=== PATIENT | male | born 1980 | race American Indian/Alaskan Native ===

== ENCOUNTER 2023-10-01 19:10 | Emergency (ER) | payer MEDICAID, OTHER ==
--- NOTE | 2023-10-01 19:41 | ED Physician Documentation ---
History of Present Illness - Stated complaint Stated Complaint: ILL,DETOX - Chief complaint Chief Complaint: General - History obtained from History obtained from: Patient - Additonal information Additional information: He was getting methadone treatment in [place], 50 mg a day. Last Monday he missed and because of that went without for 3 days. Because of that he relapsed into inhalational fentanyl use. Last use was yesterday and today he feels anxious, shaky, nauseous and panicky. He does have Narcan at home. PD PAST MEDICAL HISTORY - Past Medical History Past Medical History: No - Past Surgical History Past Surgical History: No - Allergies Allergies/Adverse Reactions: Allergies Allergy/AdvReac Type Severity Reaction Status Date / Time No Known Drug Allergies Allergy Verified 10/01/23 19:25 - Social History Does the pt smoke?: Yes Smoking Status: Current every day smoker Does the pt have substance abuse?: Yes Substance Use and Type: Other PD ED PE NORMAL - Vitals Vital signs reviewed: Yes - General General: Alert and oriented X 3, Other (Slightly anxious but calm and cooperative) - Cardiac Cardiac: Other (Mild resting tachycardia without murmur) - Respiratory Respiratory: No respiratory distress, Clear bilaterally - Abdomen Abdomen: Non tender - Neuro Neuro: Alert and oriented X 3, Normal speech Results - Vitals Vitals: Vital Signs - 24 hr 10/01/23 19:23 Temperature 37.1 C Heart Rate 117 H Respiratory 18 Rate Blood Pressure 142/95 H O2 Saturation 100 Oxygen O2 Source Room air PD Medical Decision Making - ED course ED course: He h discussed with him and his mom that the safest thing to do is to get him back onto his methadone tonight with outpatient follow-up tomorrow. Discussed with him that I would prefer he return here if he is unable to get to his treatment facility, as it is preferable over relapsing onto fentanyl which is much more dangerous. He has Narcan at home. Will do his best to get to his treatment facility tomorrow. That said it is the holiday so it may be questionable. Departure - Departure Disposition: 01 Home, Self Care Clinical Impression: Narcotic abuse Condition: Good Record reviewed to determine appropriate education?: Yes Instructions: ED Withdrawal Narcotic Comments: Try to get up to the place in [place] as per usual tomorrow, you did receive a dose of 50 mg of methadone here. Stay away from fentanyl at all cost.
[2023-10-01] MEDS: METHADONE 5 MG TABLET PO STA (20:03)
[2023-10-01 20:15] VITALS: BP 133/72; O2SAT 98
== END 2023-10-01 20:10 | disposition home or self-care (01) ==
LOC: ED 19:10 → MERGE 19:10 → ED 20:10
DX: F11.10 Opioid abuse, uncomplicated (principal); T40.3X6A Underdosing of methadone, initial encounter; R11.0 Nausea; R25.1 Tremor, unspecified; F17.200 Nicotine dependence, unspecified, uncomplicated; Z91.148 Patient's other noncompliance with medication regimen for other reason
CPT/HCPCS: 99283; 99284; A9270

== ENCOUNTER 2023-10-19 14:59 | Emergency (ER) | payer MEDICAID ==
[2023-10-19 15:14] VITALS: BP 151/97; O2SAT 98
--- NOTE | 2023-10-19 17:00 | ED Physician Documentation ---
History of Present Illness - Stated complaint Stated Complaint: METHADONE - Chief complaint Chief Complaint: General PD PAST MEDICAL HISTORY - Past Medical History Past Medical History: No Cardiovascular: None Respiratory: None Neuro: None Endocrine/Autoimmune: None GI: None : None HEENT: None Psych: Anxiety Musculoskeletal: None Derm: None - Past Surgical History Past Surgical History: No - Present Medications Home Medications: Ambulatory Orders Medication Instructions Recorded Confirmed Methadone [Methadone Hcl] See Rx Instructions .ROUTE .COMPLEX 10/01/23 10/19/23 - Allergies Allergies/Adverse Reactions: Allergies Allergy/AdvReac Type Severity Reaction Status Date / Time No Known Drug Allergies Allergy Verified 10/19/23 15:06 - Social History Does the pt smoke?: Yes Smoking Status: Current every day smoker Does the pt drink ETOH?: No Does the pt have substance abuse?: Yes - Immunizations Immunizations are current?: Yes Results - Vitals Vitals: Vital Signs - 24 hr 10/19/23 15:01 Temperature 36.5 C Heart Rate 151 H Respiratory 15 Rate Blood Pressure 151/97 H O2 Saturation 98 Oxygen O2 Source Room air Departure - Departure
[2023-10-19] MEDS: METHADONE 50 MG/5 ML ORAL SYRINGE PO STA (17:40)
--- NOTE | 2023-10-25 17:06 | ED Physician Documentation ---
History of Present Illness - Stated complaint Stated Complaint: METHADONE - Chief complaint Chief Complaint: General - History obtained from History obtained from: Patient PD PAST MEDICAL HISTORY - Past Medical History Past Medical History: No Cardiovascular: None Respiratory: None Neuro: None Endocrine/Autoimmune: None GI: None : None HEENT: None Psych: Anxiety Musculoskeletal: None Derm: None - Past Surgical History Past Surgical History: No - Present Medications Home Medications: Ambulatory Orders Medication Instructions Recorded Confirmed Methadone [Methadone Hcl] See Rx Instructions .ROUTE .COMPLEX 10/01/23 10/19/23 - Allergies Allergies/Adverse Reactions: Allergies Allergy/AdvReac Type Severity Reaction Status Date / Time No Known Drug Allergies Allergy Verified 10/22/23 12:07 - Social History Does the pt smoke?: Yes Smoking Status: Current every day smoker Does the pt drink ETOH?: No Does the pt have substance abuse?: Yes - Immunizations Immunizations are current?: Yes Results - Vitals Vitals: Oxygen O2 Source Room air PD Medical Decision Making - ED course Complexity details: considered differential (The patient gets methadone daily from a methadone clinic in [place]. He states there was an issue getting there today and he was unable to make it. Here instead. Denies any other problems. Review of old charts does not show this to be a regular issue and it seems reasonable to give him a dose ), d/w patient Departure - Departure Disposition: 01 Home, Self Care Clinical Impression: Methadone dependence, Medication dose missed Condition: Stable Comments: Continue with usual medications. Follow-up with the clinic as usual tomorrow. Return if needed. Forms: PCP List Discharge Date/Time: 10/19/23 17:44
== END 2023-10-19 17:44 | disposition home or self-care (01) ==
LOC: ED 14:59
DX: F15.20 Other stimulant dependence, uncomplicated (principal); Z76.0 Encounter for issue of repeat prescription
CPT/HCPCS: 99282; 99283

== ENCOUNTER 2023-10-22 11:53 | Emergency (ER) | payer MEDICAID ==
[2023-10-22 12:08] VITALS: BP 135/91; O2SAT 100
--- NOTE | 2023-10-22 13:05 | ED Physician Documentation ---
History of Present Illness - Stated complaint Stated Complaint: MED REQUEST - Chief complaint Chief Complaint: General - History obtained from History obtained from: Patient - Additonal information Additional information: The patient returns to the emergency department for chief complaint of wanting another methadone dose. He has been seen here a number of times in the last few weeks because he has missed the bus to go to [place] to get his doses of methadone, and has been coming here instead. The patient was first seen here on at which time he stated that the bus schedule changed because of the holiday and that was why he missed. He came 2 days in a row for his methadone at that time. He was then seen here on the which was 3 days ago because he "just forgot" to catch the bus and go to [place] for his dose. He got a methadone dose the next day but then yesterday, he forgot again and did not take the bus to [place] to get his Monday doses. He is now here asking for a dose of his methadone. His drug of choice is fentanyl, but states he does not use while he is on the methadone. No other complaints at this time. He is not currently in withdrawal. PD PAST MEDICAL HISTORY - Past Medical History Cardiovascular: None Respiratory: None Neuro: None Endocrine/Autoimmune: None GI: None : None HEENT: None Psych: Anxiety Musculoskeletal: None Derm: None - Past Surgical History Past Surgical History: No - Present Medications Home Medications: Ambulatory Orders Medication Instructions Recorded Confirmed Methadone [Methadone Hcl] See Rx Instructions .ROUTE .COMPLEX 10/01/23 10/19/23 - Allergies Allergies/Adverse Reactions: Allergies Allergy/AdvReac Type Severity Reaction Status Date / Time No Known Drug Allergies Allergy Verified 10/22/23 12:07 - Social History Does the pt smoke?: Yes Smoking Status: Current every day smoker Does the pt drink ETOH?: No Does the pt have substance abuse?: Yes Substance Use and Type: Other - Immunizations Immunizations are current?: Yes - POLST Patient has POLST: No PD ED PE NORMAL - Vitals Vital signs reviewed: Yes - General General: Alert and oriented X 3, No acute distress, Well developed/nourished, Other (Disheveled.) - HEENT HEENT: Atraumatic, PERRL, EOMI, Moist mucous membranes - Neck Neck: Supple, no meningeal sign - Respiratory Respiratory: No respiratory distress - Derm Derm: Normal color, Warm and dry, No rash - Extremities Extremities: No deformity - Neuro Neuro: Other (Alert, articulate, grossly intact.) - Psych Psych: Normal mood, Normal affect Results - Vitals Vitals: Vital Signs - 24 hr 10/22/23 12:03 Temperature 36 C L Heart Rate 94 Respiratory 16 Rate Blood Pressure 135/91 H O2 Saturation 100 Oxygen O2 Source Room air PD Medical Decision Making - ED course Complexity details: reviewed old records, considered differential, d/w patient ED course: The patient was well-appearing in the emergency department and was calm and cooperative. I reviewed his old records and found that the patient had been here multiple times in the last few weeks, requesting methadone and reporting that he is somehow missed getting to [place] for his dose. Although it had originally been stated to the patient that we would help him stay off his fen tanyl by giving him his dose, I did discuss with the patient that he is developing a pattern of using the emergency department when he does not keep track of his schedule and get to [place]. Unfortunately, the patient has had multiple visits for this in a short period of time and it is becoming a pattern and I have discussed with the patient that unfortunately I will have to declined to give him his dose this time as he needs to make it a priority to get to the methadone clinic. The use of the emergency department to repeatedly replace his methadone doses that he feels to get on his own is not appropriate. I have offered to have social work talk to him about opioid addiction support services which can help him get to the clinic and make sure he does not feel his treatment, but the patient opted to walk out of the emergency department instead before the social services coordinator could come and talk to him. The plan was to discharge the patient after social work had offered him resources. The patient was calm and had normal vital signs and displayed no evidence of withdrawal whatsoever. Departure - Departure Disposition: Left Prior to Disposition Clinical Impression: Methadone dependence, Medication dose missed Condition: Stable
== END 2023-10-22 13:00 | disposition home or self-care (01) ==
LOC: ED 11:53
DX: F15.20 Other stimulant dependence, uncomplicated (principal); Z76.0 Encounter for issue of repeat prescription; F17.200 Nicotine dependence, unspecified, uncomplicated
CPT/HCPCS: 99281; 99282